=== PATIENT | female | born 1955 | race Caucasian/White ===

== ENCOUNTER → 2023-12-05 11:27 | Outpatient (REF) | payer MEDICARE, OTHER, SELFPAY | LOC: RAD 11:27 | PROVIDERS: ATTENDING PHYSICIAN Family Medicine | DX: R91.8 Other nonspecific abnormal finding of lung field (principal) | CPT/HCPCS: 71250 ==

== ENCOUNTER → 2024-02-25 10:52 | Outpatient (REF) | payer MEDICARE, OTHER, SELFPAY | LOC: MRI 3T 10:52 | PROVIDERS: ATTENDING PHYSICIAN Podiatrist Foot & Ankle Surgery; FAMILY PHYSICIAN Family Medicine | DX: M25.871 Other specified joint disorders, right ankle and foot (principal) | CPT/HCPCS: 73718 ==

== ENCOUNTER → 2024-09-17 10:10 | Outpatient (REF) | payer MEDICARE, OTHER, SELFPAY | LOC: PAVMRI 10:10 | PROVIDERS: ATTENDING PHYSICIAN Podiatrist Foot & Ankle Surgery; FAMILY PHYSICIAN Family Medicine | DX: M79.9 Soft tissue disorder, unspecified (principal); R22.9 Localized swelling, mass and lump, unspecified | CPT/HCPCS: 73720; A9575 ==

== ENCOUNTER → 2024-10-15 08:50 | Outpatient (REF) | payer MEDICARE, OTHER, SELFPAY | LOC: RCS 08:50 | PROVIDERS: ATTENDING PHYSICIAN Nuclear Medicine Nuclear Cardiology; FAMILY PHYSICIAN Family Medicine | DX: R00.2 Palpitations (principal); R07.9 Chest pain, unspecified | CPT/HCPCS: 93017; 93350 ==

== ENCOUNTER → 2024-10-23 09:44 | Outpatient (REF) | payer MEDICARE, OTHER, SELFPAY | LOC: RCS 09:44 | PROVIDERS: ATTENDING PHYSICIAN Nuclear Medicine Nuclear Cardiology; FAMILY PHYSICIAN Family Medicine | DX: R00.2 Palpitations (principal); R07.9 Chest pain, unspecified | CPT/HCPCS: 93306 ==

== ENCOUNTER → 2024-12-27 06:49 | Outpatient (REF) | payer MEDICARE, OTHER, SELFPAY | LOC: MRI 06:49 | PROVIDERS: ATTENDING PHYSICIAN Physician Assistant; FAMILY PHYSICIAN Family Medicine | DX: M54.16 Radiculopathy, lumbar region (principal) | CPT/HCPCS: 72148 ==

== ENCOUNTER 2025-01-17 18:21 | Emergency (ER) | payer MEDICARE, OTHER, SELFPAY ==
[2025-01-17 18:23] VITALS: BP 156/104
[2025-01-17 18:53] LABS: Hematocrit 40.1 % (37.0-47.0); Hemoglobin 12.8 g/dL (12.0-16.0); Mean Corp Hgb Conc. 31.9 g/dL (33.0-37.0); Mean Corpuscular Volume 85.1 fL (81.0-99.0); Nucleated Red Blood Cells % 0 %; Platelet Count 279 10^3/uL (130-400); Red Cell Dist. Width 14.5 % (11.5-14.5)
[2025-01-17 19:08] LABS: ALT (SGPT) 26 U/L (0-35); AST (SGOT) 26 U/L (14-36); Albumin 4.2 g/dl (3.5-5.0); Alkaline Phosphatase 67 U/L (38-126); Blood Urea Nitrogen 13 mg/dl (7-17); Calcium 9.7 mg/dl (8.4-10.2); Carbon Dioxide 24 mmol/L (22-30); Chloride 104 mmol/L (98-107); Glucose 114 mg/dl (70-99); Lipase 124 U/L (23-300); Potassium 3.7 mmol/L (3.5-5.1); Sodium 135 mmol/L (135-145); Total Protein 7.3 g/dl (6.3-8.2); eGFR > 60.00
[2025-01-17] MEDS: NSS 1000 IV (20:18)
[2025-01-17 20:27] LABS: Urine Character Clear (Clear)
--- NOTE | 2025-01-17 21:13 | ED.GENMED ---
History of Present Illness
General
Chief Complaint: Abdominal Pain
Source: patient
Exam Limitations: none
Time Seen by Provider: 01/17/25 19:28
Nursing documentation reviewed up to this point in time: agreed with
History of Present Illness
History of Present Illness:
69-year-old female who presents to the emergency department for evaluation of lower abdominal pain. Patient states she has had almost 3 weeks of loose stools with progressively worsening pain in her lower abdomen. Pain seems to come in waves and
states that earlier today she was 'bent over in pain'. Pain does seem worse on the left side of her abdomen. She reports feeling very chilly however has not had any known fevers. No vomiting. No dysuria or hematuria. No anorexia
Given persistent discomfort, she went to an urgent care earlier today and was then referred here to the emergency department
Patient states she has history of diverticulitis and similar symptoms with prior flares.
She apparently recently had a colonoscopy which showed evidence of diverticulosis without other acute findings.
Review of Systems
Review of Systems
Allergies reviewed?: Yes
All Other Systems: ROS reviewed and negative except as documented in HPI and ROS
Phy Exam
Physical Exam
Physical Exam:
Vitals: Hypertensive, otherwise vital signs stable. Afebrile
General: Patient is very well appearing, no acute distress. Nontoxic appearing
Skin: Warm and dry, no rashes or lesions
Head: Normocephalic, atraumatic
Eyes: Sclera nonicteric.
Throat: Protecting airway
Neck: Normal ROM, no cervical spine tenderness, no meningismus
Cardiac: Regular rate and rhythm, no murmurs.
Pulm: Normal respiratory effort, no wheezes, rales, rhonchi heard on exam
Abdomen: Abdomen soft. Moderate tenderness in left mid/lower quadrant. No rebound tenderness or guarding. No CVA tenderness.
Extremities: No evidence of cyanosis or edema. 2+ palpable DP pulses bilaterally
Neuro: AAOx3. Grossly intact.
Psychiatric: Normal affect.
Course
Orders/Labs/Results
Orders:
Orders
01/17/25 18:42
Complete Blood Count/With Diff Urgent
Comprehensive Metabolic Panel Urgent
Lipase Urgent
01/17/25 19:15
CT Abd/pelvis W Iv Cont Urgent
Comment: hx diverticulits
Reason For Exam: LLQ pain
01/17/25 19:45
0.9% Sodium Chloride 1000 ml [Nss] 1,000 ml IV BOLUS
01/17/25 20:17
Urinalysis Reflex To Culture Urgent
Date Specimen was Collected: 01/17/25
Time Specimen was Collected: 19:51
01/17/25 21:12
LevoFLOXacin [Levaquin] 750 mg PO NOW STA
MetroNIDAZOLE [Flagyl] 500 mg PO NOW STA
Abnormal Lab Results
01/17/25
18:42
WBC 12.2 H 10^3/uL
(4.8-10.8)
MCHC 31.9 L g/dL
(33.0-37.0)
Abs Immat Gran (auto) 0.1 H 10^3/uL
(0-0.05)
Absolute Neuts (auto) 9.4 H 10^3/uL
(1.4-6.5)
Absolute Monos (auto) 0.8 H 10^3/uL
(0.1-0.6)
Immature Gran % 0.6 H %
(0-0.5)
Neutrophils % 76.6 H %
(42.2-75.2)
Lymphocytes % 14.7 L %
(20.5-51.1)
Glucose 114 H mg/dl
(70-99)
01/17/25 18:42
01/17/25 18:42
Vital Signs
Initial and Last Documented VS:
Initial Vital Signs
Temp Pulse Resp BP Pulse Ox
98.1 F 98 18 156/104 97
01/17/25 18:23 01/17/25 18:23 01/17/25 18:23 01/17/25 18:23 01/17/25 18:23
Last Documented Vital Signs
Temp Pulse Resp BP Pulse Ox
98.1 F 87 20 147/93 98
01/17/25 18:23 01/17/25 21:29 01/17/25 21:29 01/17/25 21:29 01/17/25 21:29
MDM/Problems Addressed
Differential Diagnosis Includes:
Not limited to: Acute diverticulitis, colitis, cystitis, pyelonephritis, renal colic, bowel perforation, intra-abdominal abscess, etc.
MDM/Problems Addressed:
69-year-old female presents with three weeks of loose stools and progressively worsening lower abdominal pain. Reports subjective fever and chills at home, but denies vomiting or urinary symptoms. Past medical history notable for diverticulitis.
On presentation, vitals are stable. Patient appears well and nontoxic. Abdominal exam shows reproducible tenderness in the left mid and lower quadrants without guarding, rebound, or signs of peritonitis.
Laboratory studies significant for leukocytosis. Chemistry panel and urinalysis unremarkable. CT abdomen/pelvis demonstrates acute diverticulitis of the sigmoid colon without evidence of abscess or perforation. Incidental left renal lesion
noted�discussed with patient, who will follow up with her primary care provider for outpatient evaluation.
Given that the patient is afebrile, tolerating oral intake, and has good pain control, she is appropriate for outpatient management. Treated with first doses of oral Levofloxacin and Metronidazole in the ED and prescriptions provided for home use.
Advised clear liquid diet for 24�48 hours with gradual advancement as tolerated. Supportive care and strict return precautions reviewed, including worsening pain, fever, vomiting, or inability to tolerate PO intake. Patient understands and agrees
with plan. Will follow up with GI as outpatient.
Chronic conditions affecting care:
Diverticulosis
Acute Exacerbation and/or Progression of Chronic Illness:
Acute diverticulitis
*Radiology
Radiology exam reviewed: radiology read reviewed
*Pulse Oximetry
SaO2: 97
Oxygen Mode of Delivery: Room air
Patient hypoxic: no
*EKG
Interpreted by ED Provider?: NA
*Casting Machine Set Up Operator Interpretation
Rate: Casting Machine Set Up Operator- N/A
*Critical Care Note
Total Time (30-74mins, 75-104mins- exclusive of procedures): Not Applicable
Patient Management
Discussion with other providers: Radiologist
ED Attending Note
-
Portions of this chart may have been created with voice recognition software.� Occasional wrong word or��sound alike� substitutions may have occurred due to the inherent limitations of voice recognition software.
Discharge Plan
Departure
Patient Disposition: Home (Routine Discharge)
Date of Disposition: 01/17/25
Time of Disposition: 21:17
Patient with high blood pressure during this ER visit?: Yes
Condition: Good
Discharge Problem:
Acute diverticulitis
Instructions: Clear Liquid Diet, Diverticulitis (DC), BLOOD PRESSURE
Prescriptions:
New
metronidazole 500 mg tablet
500 mg PO TID 10 Days Qty: 30 0RF
levofloxacin 750 mg tablet
750 mg PO DAILY 10 Days Qty: 10 0RF
Referrals:
Stefano Norman MD [Active, Gastroenterology] - Next open appointment
Chino Gutiérrez MD [Family Provider, Family Practice]
Activity Restrictions/Additional Instructions:
RETURN TO THE EMERGENCY DEPARTMENT ANY FEVERS, PERSISTENT/WORSENING ABDOMINAL PAIN, INTRACTABLE NAUSEA/VOMITING, SIGNS OF DEHYDRATION, WORSENING IN CURRENT SYMPTOMS, OR ANY OTHER CONCERN
- As discussed, your CT scan showed findings of acute diverticulitis. A prescription for 2 antibiotics has been sent to your pharmacy. Please take these as directed for the next 10 days. You should not drink alcohol while taking metronidazole.
- You can take Tylenol and/or Motrin as needed for discomfort. It is important to stay well-hydrated. I would recommend a clear liquid diet for the next 2 days and slowly advance to low fiber.
- Your CT scan did show an incidental finding of a lesion of your left kidney. Please follow-up with your primary care to ensure this is followed up further for better characterization
- Follow-up with GI for further evaluation/management and to ensure that your symptoms are improving
Monitor your symptoms closely and return to the emergency department with any acute worsening/new symptoms or any other concerns
Interventions
Interventions:
*Risk Screen - Suicide Last Done: 01/17/25 18:29
*General Assessment Last Done: 01/17/25 18:23
*Neglect/Abuse Screening Last Done: 01/17/25 18:23
*ED- Fall Risk Assessment Last Done: 01/17/25 20:30
*ED COVID-19 Vaccine History Last Done: 01/17/25 18:23
*ED Influenza Vaccine History Last Done: 01/17/25 18:23
*Nursing Disposition Last Done: 01/17/25 21:37
OR-Plolci-Pyzzkqkndx Assessment Last Done: 01/17/25 20:30
Discharge Date and Time
Discharge Date/Time: 01/17/25 21:38
Print Language: ARMENIAN
[2025-01-17] MEDS: FLAGYL 500 MG PO (21:18)
[2025-01-17] MEDS: LEVAQUIN 750 MG PO (21:18)
[2025-01-17 21:29] VITALS: BP 147/93
== END 2025-01-17 21:38 | disposition home or self-care (01) ==
LOC: EMR 18:21
PROVIDERS: Emergency Medicine; Physician Assistant; EMERGENCY PHYSICIAN Emergency Medicine; FAMILY PHYSICIAN Family Medicine
DX: K57.32 Diverticulitis of large intestine without perforation or abscess without bleeding (principal)
CPT/HCPCS: 99284; 96360; 74177; 80053; 81003; 83690; 85025; Q9967

== ENCOUNTER 2025-02-01 16:35 | Emergency (ER) | payer MEDICARE, OTHER, SELFPAY ==
[2025-02-01 16:43] VITALS: BP 156/92
--- NOTE | 2025-02-01 17:00 | ED.GENMED ---
History of Present Illness
General
Chief Complaint: Fever
Source: patient and records
Exam Limitations: none
Time Seen by Provider: 02/01/25 16:56
History of Present Illness
History of Present Illness:
69yoF with a history of hypertension, hyperlipidemia, and hypothyroidism presenting for evaluation of chills. Patient was seen in the ED on 01/13/[address] revealed 'Short segment stranding about the junction of the distal
descending and proximal sigmoid colon suspicious for ACUTE DIVERTICULITIS. No intestinal obstruction or free air.' Patient was discharged with prescriptions for Levaquin and Flagyl. She only took 3 doses of Flagyl and discontinued this due to
vomiting. She completed the entire 10-day course of Levaquin 5 days ago. She has been experiencing chills for the past 4 days. She has been checking her temperature 3 times daily which have all been normal. Her only other symptom is intermittent
headaches but she has none currently. Her abdominal pain is completely resolved. She called her PCP office and spoke with the on-call provider who prescribed an additional 10-day course of Levaquin. She took 1 dose of Levaquin today and also took
a dose of Flagyl. She was told to go to the ED for evaluation. She denies any cough, URI symptoms, dysuria, rash.
Phy Exam
General Physical Exam
General Presentation: well appearing and no apparent distress
General Skin: warm and dry
General Habitus: normal
General Mental: alert
ENT Exam
ENT Exam: normocephalic
Cardiovascular Exam
Cardiovascular Exam: regular rate/rhythm
Pulmonary Exam
Pulmonary Exam: lungs clear, no respiratory distress, no rales, no crackles, no rhonchi and no wheezing
Gastrointestinal Exam
Gastrointestinal Exam: non tender, soft and non distended
Neurological Exam
Neurological Exam: alert
Christiano Coma Scale
Eye Opening: Spontaneous
Verbal Response: Oriented
Motor Response: Obeys Commands
GCS Total Score: 15
Skin Exam
Skin Exam: normal color and warm/dry
Psychiatric Exam
Psychiatric Exam: normal mood/affect
Course
Orders/Labs/Results
Orders:
Orders
02/01/25 17:08
0.9% Sodium Chloride 1000 ml [Nss] 1,000 ml IV BOLUS
02/01/25 17:09
CT Abd/pelvis W Iv Cont Urgent
Comment:
Reason For Exam: chills, recent dx of diverticulitis
02/01/25 17:22
COVID-19 Antigen Urgent
Source: Nasal Swab
Complete Blood Count/With Diff Urgent
Comprehensive Metabolic Panel Urgent
Lactate Level [Lactic Acid] Urgent
Urinalysis Reflex To Culture Urgent
Date Specimen was Collected: 02/01/25
Time Specimen was Collected: 17:14
Urine Microscopic Reflex Cult Urgent
Influenza A+B Rapid Molecular Urgent
BRENDON Source: Nasal Swab
Specimen Description:
Urine Culture Urgent
BRENDON Source: U
Specimen Description:
Date Specimen was Collected: 02/01/25
Time Specimen was Collected: 17:14
02/01/25 18:09
Potassium Chloride [KCl] 40 meq PO NOW STA
Abnormal Lab Results
02/01/25
17:22
Hgb 11.9 L g/dL
(12.0-16.0)
Hct 35.6 L %
(37.0-47.0)
MCV 80.7 L fL
(81.0-99.0)
RDW 14.6 H %
(11.5-14.5)
Absolute Monos (auto) 0.7 H 10^3/uL
(0.1-0.6)
Monocytes % 9.6 H %
(1.7-9.3)
Potassium 3.2 L mmol/L
(3.5-5.1)
Urine Ketones 2+ A
(Negative)
Ur Occult Blood Reflex 2+ A
(Negative)
Leukocyte Esterase Rfl 2+ A
(Negative)
Urine Bacteria (Reflex) Moderate A
(Negative)
Urine Albumin (Reflex) 2+ A
(Neg - Trace)
02/01/25 17:22
02/01/25 17:22
Vital Signs
Initial and Last Documented VS:
Initial Vital Signs
Temp Pulse Resp BP Pulse Ox
98.0 F 113 16 156/92 96
02/01/25 16:43 02/01/25 16:43 02/01/25 16:43 02/01/25 16:43 02/01/25 16:43
Last Documented Vital Signs
Temp Pulse Resp BP Pulse Ox
97.9 F 77 20 145/77 96
02/01/25 19:03 02/01/25 19:03 02/01/25 19:03 02/01/25 19:03 02/01/25 19:03
MDM/Problems Addressed
Differential Diagnosis Includes:
69yoF here with chills. Just finished a course of Levaquin 4 days ago for diverticulitis. Denies fevers or abd pain. Sent in by PCP. HR 113 in triage. Temp 98.0. She is well appearing in no distress. Abdominal exam is benign and remainder of exam is
reassuring. Differential diagnosis includes but is not limited to: viral illness, diverticular abscess, intra-abdominal perforation
Initial ED plan: Check CBC, CMP, lactate, UA, COVID/flu swab, and CT abdomen. IV fluid bolus.
*Pulse Oximetry
SaO2: 96
Oxygen Mode of Delivery: Room air
Patient hypoxic: no
*Critical Care Note
Total Time (30-74mins, 75-104mins- exclusive of procedures): Not Applicable
Update Note
Update Note:
Both white count and lactate are within normal limits. Potassium 3.2 which was replaced. UA with moderate bacteria although only 0-2 WBCs present and there are 16-20/LPF squamous epithelial cells suggesting contaminated sample. Viral testing
negative. CT is negative for acute findings. Specifically, there is no evidence of diverticulitis. Only new imaging finding is a pancreatic tail lesion, likely a benign cyst for which radiology is recommending an outpatient MRI. Patient informed
of this finding and was given a copy of the radiology report. Unclear etiology of chills, possible viral illness? She is not meeting any SIRS criteria. No indication for hospitalization. She reports urinary frequency which is chronic for her but
denies any dysuria/new urinary symptoms. She also just finished Levaquin which should have covered for a UTI. Will defer further antibiotics at this time pending urine culture results. She has a PCP appt scheduled in 2 days. Patient discharged
in stable condition.
ED Attending Note
-
Portions of this chart may have been created with voice recognition software.� Occasional wrong word or��sound alike� substitutions may have occurred due to the inherent limitations of voice recognition software.
Discharge Plan
Departure
Patient Disposition: Home (Routine Discharge)
Date of Disposition: 02/01/25
Time of Disposition: 19:32
Patient with high blood pressure during this ER visit?: Yes
Discharge Problem:
Chills, Pancreatic lesion
Instructions: Fatigue - ED (DC)
Prescriptions:
No Action
metronidazole 500 mg tablet
500 mg PO TID 10 Days Qty: 30 0RF
levofloxacin 750 mg tablet
750 mg PO DAILY 10 Days Qty: 10 0RF
Referrals:
Chino Gutiérrez MD [Family Provider, Family Practice]
Activity Restrictions/Additional Instructions:
Your lab work was reassuring today and the CT scan did not show any evidence of infection. You can stop antibiotics. We will call you if your urine culture is abnormal.
Your CT scan showed a lesion near your pancreas and radiology recommends an outpatient MRI to further evaluate this.
Please follow-up with your family doctor on Monday as previously scheduled. Return to the ER with any new or worsening symptoms.
Interventions
Interventions:
*Risk Screen - Suicide Last Done: 02/01/25 16:43
*General Assessment Last Done: 02/01/25 16:43
*Neglect/Abuse Screening Last Done: 02/01/25 16:43
*ED- Fall Risk Assessment Last Done: 02/01/25 16:43
*ED COVID-19 Vaccine History Last Done: 02/01/25 16:43
*ED Influenza Vaccine History Last Done: 02/01/25 16:43
ED- Neurological Assessment Last Done: 02/01/25 19:03
ED-Skin Assessment Last Done: 02/01/25 19:03
Discharge Date and Time
Print Language: ESTONIAN
[2025-02-01 17:22] VITALS: BMI 31.9
[2025-02-01] MEDS: NSS 1000 IV (17:34)
[2025-02-01 17:43] VITALS: BP 145/81
[2025-02-01 17:45] LABS: Hematocrit 35.6 % (37.0-47.0); Hemoglobin 11.9 g/dL (12.0-16.0); Mean Corp Hgb Conc. 33.4 g/dL (33.0-37.0); Mean Corpuscular Volume 80.7 fL (81.0-99.0); Nucleated Red Blood Cells % 0 %; Platelet Count 233 10^3/uL (130-400); Red Cell Dist. Width 14.6 % (11.5-14.5)
[2025-02-01 17:48] LABS: Urine Character Clear (Clear)
[2025-02-01 17:57] LABS: COVID-19 Antigen Negative (Negative)
[2025-02-01 18:02] LABS: ALT (SGPT) 19 U/L (0-35); AST (SGOT) 22 U/L (14-36); Albumin 4.0 g/dl (3.5-5.0); Alkaline Phosphatase 53 U/L (38-126); Blood Urea Nitrogen 9 mg/dl (7-17); Calcium 9.4 mg/dl (8.4-10.2); Carbon Dioxide 27 mmol/L (22-30); Chloride 105 mmol/L (98-107); Estimated Creatinine Clearance 78 ml/min; Glucose 97 mg/dl (70-99); Potassium 3.2 mmol/L (3.5-5.1); Sodium 137 mmol/L (135-145); Total Protein 6.6 g/dl (6.3-8.2); eGFR > 60.00
[2025-02-01 18:06] LABS: Urine Red Blood Cell 0-2 /HPF (0-2); Urine Squamous Cell 16-20 /LPF (Few); Urine White Cell 0-2 /HPF (0-5)
[2025-02-01] MEDS: KCL 40 MEQ PO (18:20)
[2025-02-01 19:03] VITALS: BP 145/77
== END 2025-02-01 20:17 | disposition home or self-care (01) ==
LOC: EMR 16:35
PROVIDERS: Physician Assistant; EMERGENCY PHYSICIAN Emergency Medicine; FAMILY PHYSICIAN Family Medicine
DX: R68.83 Chills (without fever) (principal); K86.9 Disease of pancreas, unspecified; I10 Essential (primary) hypertension; E78.5 Hyperlipidemia, unspecified; E03.9 Hypothyroidism, unspecified
CPT/HCPCS: 99284; 96360; 74177; 80053; 81003; 81015; 83605; 85025; 87086; 87502; 87811; Q9967